=== PATIENT | male | born 1950 | race Caucasian/White ===

== ENCOUNTER 2017-06-15 15:10 | Outpatient (CLI) | payer BC, MEDICARE | END 2017-06-15 15:11 | disposition home or self-care (01) | LOC: BICRAD 15:10 | PROVIDERS: ATTEND Internal Medicine Rheumatology | DX: M54.2 Cervicalgia (principal); M47.812 Spondylosis without myelopathy or radiculopathy, cervical region | CPT/HCPCS: 72052 ==

== ENCOUNTER 2017-07-21 15:10 | Outpatient (CLI) | payer MEDICARE, BC | END 2017-07-21 15:11 | disposition home or self-care (01) | LOC: BICRAD 15:10 | PROVIDERS: ATTEND Physician Assistant | DX: S61.200D Unspecified open wound of right index finger without damage to nail, subsequent encounter (principal) ==

== ENCOUNTER 2017-09-14 14:29 | Outpatient (CLI) | payer MEDICARE, BC | END 2017-09-14 14:30 | disposition home or self-care (01) | LOC: BICRAD 14:29 | PROVIDERS: ATTEND Internal Medicine Rheumatology | DX: M25.551 Pain in right hip (principal); M25.552 Pain in left hip; M16.0 Bilateral primary osteoarthritis of hip | CPT/HCPCS: 72170 ==

== ENCOUNTER 2023-09-04 09:08 | Day surgery (SDC) | payer MEDICARE ==
[2023-09-03 14:57] VITALS: BMI 32.5
[2023-09-04 11:12] LABS: Anion Gap 15 mmol/L (10-20)
[2023-09-04 11:15] LABS: BUN (Urea Nitrogen) 21 mg/dL (8.4-25.7); Calc. Creatinine Clearance 132 mL/min (70-130); Calcium 9.4 mg/dL (7.8-10.44); Carbon Dioxide 23 mmol/L (23-31); Chloride 108 mmol/L (98-107); Estimated GFR 95; Glucose 101 mg/dL (83-110); Sodium 142 mmol/L (136-145)
[2023-09-04] MEDS ORDERED: Bupivacaine 0.25% HCL 30 ML VIAL ONE (11:22)
[2023-09-04] MEDS ORDERED: Bacitracin Zinc Ointment 30 gm TUBE ONE (11:22)
[2023-09-04] MEDS ORDERED: EPINEPHrine 1 MG/ML VIAL ONE (11:22)
[2023-09-04] MEDS ORDERED: Promethazine HCl 25 MG/ML VIAL ONE (11:38)
[2023-09-04] MEDS ORDERED: Lidocaine 2% PF 5 ML VIAL ONE (11:42)
[2023-09-04] MEDS ORDERED: PROPOFOL 20 ML ONE (11:42)
[2023-09-04] MEDS ORDERED: Heparin 5,000 UNITS/ML VIAL ONE (11:56)
[2023-09-04] MEDS ORDERED: CEFAZOLIN 2 GM VIAL ONE (11:56)
[2023-09-04] MEDS ORDERED: Sodium Chloride 0.9% 100 ML ONE (11:56)
[2023-09-04] MEDS ORDERED: PHENYLEPHRINE-NS 100 MCG/ML 10 ML SYRINGE ONE (12:40)
[2023-09-04] MEDS ORDERED: Phenylephrine 10 MG/ML VIAL ONE (12:51)
[2023-09-04] MEDS ORDERED: Ondansetron PF 4 MG/2 ML Vial ONE (13:21)
[2023-09-04] MEDS ORDERED: Ketorolac Tromethamine 30 MG (1 mL) VIAL ONE (13:47)
== END 2023-09-04 15:48 | disposition home or self-care (01) ==
LOC: SDC 09:08
PROVIDERS: ATTEND Plastic Surgery
PROC: 0HB0XZZ Excision of Scalp Skin, External Approach (ICD-10-PCS; principal; 2023-09-04)
DX: C44.42 Squamous cell carcinoma of skin of scalp and neck (principal); I10 Essential (primary) hypertension; R01.1 Cardiac murmur, unspecified; Z96.653 Presence of artificial knee joint, bilateral; F17.210 Nicotine dependence, cigarettes, uncomplicated; Z79.899 Other long term (current) drug therapy
CPT/HCPCS: 11623; 13121; 13122; 80048; 93005; 97139; J0171; 88305; 88331; 88332; 93010; J0665; J1644; J1885; J2001; J2371; J2405; J2550; J2704; J3490